=== PATIENT | male | born 1955 | race Caucasian/White ===

== ENCOUNTER → 2018-10-17 | Outpatient (CLI) | payer OTHER | END | disposition home or self-care (01) | LOC: NUCLEAR 10:00 | DX: R55 Syncope and collapse (principal) ==

== ENCOUNTER 2018-10-18 14:09 | Outpatient (CLI) | payer OTHER | END 2018-10-18 14:15 | disposition home or self-care (01) | LOC: MRI 14:09 | DX: I63.30 Cerebral infarction due to thrombosis of unspecified cerebral artery (principal); R55 Syncope and collapse | CPT/HCPCS: 70551 ==

== ENCOUNTER 2020-02-05 16:31 | Outpatient (CLI) | payer OTHER | END 2020-02-05 16:36 | disposition home or self-care (01) | LOC: LAB 16:31 | PROVIDERS: ATTEND Urology | DX: N30.00 Acute cystitis without hematuria (principal) ==

== ENCOUNTER 2021-05-02 11:33 | Outpatient (CLI) | payer OTHER | END 2021-05-02 13:02 | disposition home or self-care (01) | LOC: TOM 11:33 | PROVIDERS: ATTEND Urology | DX: Q61.01 Congenital single renal cyst (principal); R97.20 Elevated prostate specific antigen [PSA]; R31.0 Gross hematuria; N40.1 Benign prostatic hyperplasia with lower urinary tract symptoms ==

== ENCOUNTER 2022-07-14 06:10 | Emergency (ER) | payer OTHER ==
[~2022-07-14] VITALS: Ht 167.6 cm; Wt 61.7 kg
[2022-07-14] MEDS ORDERED: TRICOR48 MG (06:25)
[2022-07-14] MEDS ORDERED: ADULT LOW DOSE81 M1 PO (06:26)
[2022-07-14] MEDS ORDERED: LOPRESSOR25 MG (06:26)
[2022-07-14] MEDS ORDERED: PROTONIX40 MG PO (06:26)
[2022-07-14] MEDS ORDERED: PLAVIX75 MG PO (06:26)
[2022-07-14] MEDS ORDERED: TAMS0.4C PO (06:27)
[2022-07-14] MEDS ORDERED: VITAMIN B-121000 MC4 PO (06:27)
[2022-07-14] MEDS ORDERED: IRON325 MG PO (06:27)
[2022-07-14] MEDS ORDERED: PROSCAR5 MG PO (06:27)
[2022-07-14] MEDS ORDERED: DOCUSATE CALCI240 MG PO (06:28)
== END 2022-07-14 10:39 | disposition home or self-care (01) ==
LOC: ER 06:10
DX: R31.9 Hematuria, unspecified (principal); I10 Essential (primary) hypertension; E78.00 Pure hypercholesterolemia, unspecified; N40.0 Benign prostatic hyperplasia without lower urinary tract symptoms; Z95.1 Presence of aortocoronary bypass graft

== ENCOUNTER 2022-07-16 16:20 | Outpatient (CLI) | payer OTHER ==
[~2022-07-16 16:20] MED LIST: ADULT LOW DOSE81 M1 PO; DOCUSATE CALCI240 MG PO; IRON325 MG PO; LOPRESSOR25 MG; PLAVIX75 MG PO; PROSCAR5 MG PO; PROTONIX40 MG PO; TAMS0.4C PO; TRICOR48 MG; VITAMIN B-121000 MC4 PO
== END 2022-07-16 23:00 | disposition home or self-care (01) ==
LOC: LAB 16:20
PROVIDERS: ATTEND Internal Medicine Cardiovascular Disease
DX: R31.9 Hematuria, unspecified (principal); D64.9 Anemia, unspecified

== ENCOUNTER 2022-07-16 17:29 | Inpatient (IN) | payer OTHER ==
[~2022-07-16] VITALS: Ht 167.6 cm; Wt 61.7 kg
[2022-07-20] MEDS ORDERED: DOXAZOSIN MESYLA2 MG (09:09)
[2022-07-20] MEDS ORDERED: CLOPIDOGREL BIS75 MG (09:09)
[2022-07-20] MEDS ORDERED: METOPROLOL SUCC25 MG PO (09:10)
[2022-07-20] MEDS ORDERED: DOCUSATE SODIU100 MG (09:10)
[2022-07-20] MEDS ORDERED: VITAMIN B-121000 MCG (09:10)
[2022-07-20] MEDS ORDERED: FINASTERIDE5 MG (09:11)
[2022-07-25] MEDS ORDERED: Septra Ds Tablet PO (11:01)
[2022-07-25] MEDS ORDERED: TAMS0.4C PO (11:02)
[2022-07-25] MEDS ORDERED: DOXAZOSIN MESYLA2 MG PO (11:03)
== END 2022-07-25 12:03 | disposition home or self-care (01) | DRG 988 ==
LOC: ER 17:29 → MEDI 22:19
PROVIDERS: Urology; ADMIT Internal Medicine; ATTEND Internal Medicine
PROC: 30233N1 Transfusion of Nonautologous Red Blood Cells into Peripheral Vein, Percutaneous Approach (ICD-10-PCS; 2022-07-17)
PROC: B24BZZZ Ultrasonography of Heart with Aorta (ICD-10-PCS; 2022-07-21)
PROC: 4A12X4Z Monitoring of Cardiac Electrical Activity, External Approach (ICD-10-PCS; 2022-07-22)
PROC: 0VB08ZZ Excision of Prostate, Via Natural or Artificial Opening Endoscopic (ICD-10-PCS; principal; 2022-07-22 13:00)
DX: D64.9 Anemia, unspecified (principal); N13.8 Other obstructive and reflux uropathy; N39.0 Urinary tract infection, site not specified; N17.8 Other acute kidney failure; N41.1 Chronic prostatitis; E86.0 Dehydration; R31.0 Gross hematuria; D50.0 Iron deficiency anemia secondary to blood loss (chronic); E78.5 Hyperlipidemia, unspecified; N40.0 Benign prostatic hyperplasia without lower urinary tract symptoms; I25.10 Atherosclerotic heart disease of native coronary artery without angina pectoris; I10 Essential (primary) hypertension; Z95.1 Presence of aortocoronary bypass graft; Z20.822 Contact with and (suspected) exposure to COVID-19

== ENCOUNTER → 2022-11-04 | Outpatient (CLI) | payer OTHER ==
[~2022-11-04] MED LIST changes: +CLOPIDOGREL BIS75 MG; +DOCUSATE SODIU100 MG; +DOXAZOSIN MESYLA2 MG; +DOXAZOSIN MESYLA2 MG PO; +FINASTERIDE5 MG; +METOPROLOL SUCC25 MG PO; +Septra Ds Tablet PO; +VITAMIN B-121000 MCG
== END | disposition home or self-care (01) ==
LOC: TOM 14:15
DX: S06.5X0A Traumatic subdural hemorrhage without loss of consciousness, initial encounter (principal)

== ENCOUNTER 2023-10-11 08:35 | Outpatient (CLI) | payer OTHER | END 2023-10-11 08:46 | disposition home or self-care (01) | LOC: TOM 08:35 | PROVIDERS: ATTEND Internal Medicine | DX: K56.50 Intestinal adhesions [bands], unspecified as to partial versus complete obstruction (principal); Z86.010 Personal history of colon polyps; Z95.0 Presence of cardiac pacemaker ==

== ENCOUNTER 2025-06-08 07:07 | Outpatient (CLI) | payer OTHER | END 2025-06-08 07:08 | disposition home or self-care (01) | LOC: NUCLEAR 07:07 | PROVIDERS: ATTEND Internal Medicine | DX: I20.9 Angina pectoris, unspecified (principal) ==